=== PATIENT | male | born 1945 | race Caucasian/White ===

== ENCOUNTER → 2024-10-15 | Emergency (ER) | payer OTHER ==
[~2024-10-15] VITALS: Ht 157.5 cm; Wt 60.3 kg
[~2024-10-15] MED LIST: JANTOVEN1 MG PO; KETOROLAC TROMETHAMINE 60 MG VIAL IM ONE; NORFLEX100MG PO; SIMVASTATIN80 MG
== END | disposition home or self-care (01) ==
LOC: ER 12:29
DX: M54.9 Dorsalgia, unspecified (principal); E11.9 Type 2 diabetes mellitus without complications; Z79.84 Long term (current) use of oral hypoglycemic drugs
CPT/HCPCS: 96372; 99282; J1885